=== PATIENT | male | born 1970 | race African-American/Black ===

== ENCOUNTER 2018-04-14 17:04 | Emergency (ER) | payer BC ==
[2018-04-14] MEDS ORDERED: Lidocaine 1% w/Epinephrine 1:100K 20 ML VIAL ONE (18:06)
== END 2018-04-14 18:32 | disposition home or self-care (01) ==
LOC: ERS 17:04
DX: L02.214 Cutaneous abscess of groin (principal); E78.00 Pure hypercholesterolemia, unspecified; F41.9 Anxiety disorder, unspecified
CPT/HCPCS: 10061; 87070; 87077; 87186; 87205; J2001

== ENCOUNTER 2021-02-27 19:00 | Outpatient (CLI) | payer BC | END 2021-02-27 19:01 | disposition home or self-care (01) | LOC: SLEEPLAB 19:00 | PROVIDERS: ATTEND Family Medicine | DX: G47.33 Obstructive sleep apnea (adult) (pediatric) (principal); R53.83 Other fatigue; R06.83 Snoring; F41.9 Anxiety disorder, unspecified; E66.9 Obesity, unspecified; Z68.41 Body mass index [BMI] 40.0-44.9, adult | CPT/HCPCS: 95806 ==